=== PATIENT | female | born 1955 | race Caucasian/White ===

== ENCOUNTER 2016-10-10 01:06 | Emergency (ER) | payer BC ==
[~2016-10-10] VITALS: Ht 170.2 cm; Wt 100.7 kg
[~2016-10-10 01:06] MED LIST: ACET1TAB12 PO; ACYC800T PO; ASPI-131 PO; CA C1TAB81 PO; CINN500C14; FISH1CAP2 PO; GABA-338 PO; KETO10DR13 BOTH EYES; LORA10TA62 PO; MELO-273 PO; PANT40TA PO; VITA400T9 PO
--- OUTSIDE RECORDS SUMMARY | 2016-10-10 01:10 | XMS REPORT | Continuity of Care Document ---
Author Author [facility] Organization [facility] Address Unknown Phone Unavailable Allergies Medications Problems Procedures Results Encounters ACCT No. Visit Date/Time Discharge Status Pt. Type Provider Facility Loc./Unit Complaint [id number] 07/22/2013 18:05:00 07/22/2013 23 :59:59 CLS Outpatient [id number] 07/01/2013 13:10:00 07/01/2013 23 :59:59 CLS Outpatient
--- OUTSIDE RECORDS SUMMARY | 2016-10-10 01:11 | XMS REPORT | Referral Summary ---
Author Author [facility] Organization [facility] Address Unknown Phone Unavailable Care Team Providers Care Attendant [employer] Name Role Phone Fiordaliza Cinthya Primary Care Physician [phone] Encounter Date(s): 04/01/16 - 04/01/16 [facility] [address] [place], [place] [address] Discharge Diagnosis: Recurrent UTI Discharge Diagnosis: Urinary incontinence, mixed Discharge Disposition: 01-Home or Self Care Attending Physician: Nir Mae MD Admitting Physician: Nir Mae MD Vital Signs Most recent to 1 oldest [Reference Range]: Blood Pressure 124/72 mmHg [90-140/60-90 mmHg] (04/01/16 9:38 AM) Problem List Condition Effective Dates Status Health Status Informant Allergic rhinitis Active cause unspecified(Confirme d) Allergies(Confirmed) Resolved Arthralgia of the Active lower leg (finding)(Confirmed) Asthma(Confirmed) Resolved Benign neoplasm of Active skin (disorder)(Confirmed ) Other chronic Active sinusitis(Confirmed) Hyperkeratosis Active palmaris et plantaris(Confirmed) Dry eyes(Confirmed) Active Low sun exposure and Active no serious sunburns(Confirmed) GERD without Active esophagitis(Confirme d) Knee pain(Confirmed) Active Migraine Resolved headache(Confirmed) OA (osteoarthritis) Active of knee(Confirmed) AC SUPP OTITIS MEDIA Active W/O SPONTRUPT DRUM(Confirmed) Overweight(Confirmed Active ) Chronic Active insomnia(Confirmed) Retinal Active detachment(Confirmed ) Nevus(Confirmed) Active Urinary tract Active infection site not spec(Confirmed) Allergies, Adverse Reactions, Alerts Substance Reaction Severity Status amoxicillin rash Active cyclobenzaprine Active NSAIDs Active Peanuts Active penicillin unknown Active sulfamethoxazole unknown Active [place] Seeds Trouble breathing... Active traMADol right hand cramps Active Medications Advair Diskus 250 mcg-50 mcg inhalation powder 1 puffs, Inhalation, BID, # 3 Each, 1 Refill(s), Pharmacy: [facility] # [id number] Start Date: 10/10/15 Status: Ordered AZO Urinary Pain Relief mg, Oral, TIDPC, as needed for urinary discomfort, 0 Refill(s) Start Date: 04/02/15 Status: Ordered cinnamon 500 mg oral capsule See Instructions, 1 CAPS DAILY, 0 Refill(s) Start Date: 10/26/15 Status: Ordered ferrous sulfate 325 mg, Oral, Daily, 0 Refill(s) Start Date: 12/15/13 Status: Ordered Mobic 7.5 mg oral tablet 7.5 mg 1 tabs, Oral, BID, # 60 tabs, 0 Refill(s), Pharmacy: [facility] # [id number], 1 tabs Oral BID Start Date: 10/10/15 Status: Ordered omega-3 polyunsaturated fatty acids oral capsule 1 caps, Oral, Daily, 1000 MG, # 100 caps, 0 Refill(s) Start Date: 12/15/13 Status: Ordered oxybutynin 10 mg/24 hr oral tablet, extended release 10 mg 1 tabs, Oral, Daily, # 30 tabs, 3 Refill(s), Pharmacy: [facility] # [id number], 1 tabs Oral Daily,x30 days Start Date: 04/01/16 Stop Date: 07/30/16 Status: Ordered Protonix 40 mg oral delayed release tablet 40 mg 1 tabs, Oral, Daily, # 30 tabs, 5 Refill(s), Pharmacy: [facility] # [id number], 1 tabs Oral Daily Start Date: 10/26/15 Status: Ordered Ventolin HFA 90 mcg/inh inhalation aerosol 2 puffs, Inhalation, q4hr, as needed for wheezing, # 8 g, 0 Refill(s) Start Date: 12/15/13 Status: Ordered Vitamin D3 400 Intl_Units, Oral, Every other day, 0 Refill(s) Start Date: 12/15/13 Status: Ordered Results No data available for this section Immunizations Vaccine Date Refusal Reason tetanus/diphth/pertuss (Tdap) adult/adol 03/26/15 tetanus/diphth/pertuss (Tdap) adult/adol 08/27/11 influenza virus vaccine, inactivated 9/28/15 pneumococcal 23-polyvalent vaccine 07/07/14 pneumococcal 23-polyvalent vaccine 04/06/09 Procedures Procedure Date Related Diagnosis Body Site Cystourethroscopy (separate procedure).. 04/01/16 Nasal Septum Repair 05/30/08 Colonoscopy 01/29/07 Appendectomy 1992 Cholecystectomy 1992 section 1988 H/O tubal ligation 1988 Social History Social History Type Response Smoking Status Never smoker Assessment and Plan Extracted from: Title: Office Visit Note Author: Nir Mae MD Date: 04/01/16 Assessment/Plan 61 yo F with recurrent urinary tract infections and stress UI. 1.Recurrent UTI Advised patient to purchase D-mannose and cranberry pills OTC. Also suggested she start timed voiding every 4-6 hours to empty her bladder. 2.Urinary incontinence, mixed Will start oxybutynin once daily. Will also schedule patient for pelvic floor physical therapy. Timed voiding every 4-6 hours. Explained invasive interventions including botox, PTNS andinterstim if medical therapy fails for urge incontinence. Ordered: oxybutynin, 10 mg 1 tabs, Oral, Daily, # 30 tabs, 3 Refill(s), Pharmacy: [facility] #[id number], 1 tabs Oral Daily,x30 days RTC in6 months.
--- OUTSIDE RECORDS SUMMARY | 2016-10-10 01:11 | XMS REPORT | Referral Summary ---
Author Author [facility] Organization [facility] Address Unknown Phone Unavailable Care Team Providers Care First Responder Name Role Phone Cinthya Mancera Primary Care Physician [phone] Encounter VC Date(s): 04/23/16 - 04/23/16 [facility] [address] [place] [id number] Discharge Diagnosis: Acute URI Discharge Diagnosis: Acute panniculitis Discharge Disposition: 01-Home or Self Care Attending Physician: Stefan Mancera MD Admitting Physician: Stefan Mancera MD Vital Signs Most recent to 1 oldest [Reference Range]: Blood Pressure 120/80 mmHg [90-140/60-90 mmHg] (04/23/16 2:09 PM) Problem List Condition Effective Dates Status Health [...] Active penicillin unknown Active sulfamethoxazole unknown Active [place] Seeds Trouble breathing... Active traMADol right hand cramps Active Medications Advair Diskus 250 mcg-50 mcg inhalation powder 1 puffs, Inhalation, BID, # 3 Each, 1 Refill(s), Pharmacy: [facility] # [id number] Start Date: 10/10/15 Status: Ordered AZO Urinary [...] BID, # 60 tabs, 0 Refill(s), Pharmacy: [facility] # [id number], 1 tabs Oral BID Start Date: 10/10/15 Status: Ordered omega-3 polyunsaturated fatty acids oral capsule 1 caps, Oral, Daily, 1000 MG, # 100 caps, 0 Refill(s) Start Date: 12/15/13 Status: Ordered oxybutynin 10 mg/24 hr oral tablet, extended release 10 mg 1 tabs, Oral, Daily, # 30 tabs, 3 Refill(s), Pharmacy: [facility] # [id number], 1 tabs Oral Daily,x30 days Start Date: 04/01/16 Stop Date: 07/30/16 Status: Ordered predniSONE 20 mg oral tablet 20 mg 1 tabs, Oral, Daily, X 10 days, # 10 tabs, 0 Refill(s), Pharmacy: [facility] #[id number], 1 tabs Oral Daily,x10 days Start Date: 04/23/16 Stop Date: 05/03/16 Status: Ordered Protonix 40 mg oral delayed release tablet 40 mg 1 tabs, Oral, Daily, # 30 tabs, 5 Refill(s), Pharmacy: [facility] # [id number], 1 tabs Oral Daily Start Date: 10/26/15 [...] (Tdap) adult/adol 08/27/11 influenza virus vaccine, inactivated 03/26/15 pneumococcal 23-polyvalent vaccine 07/07/14 pneumococcal 23-polyvalent vaccine 04/06/09 Procedures Procedure Date Related Diagnosis Body Site Nasal Septum Repair 05/30/08 Colonoscopy 01/29/07 Appendectomy 1992 Cholecystectomy 1992 section 1988 H/O tubal ligation 1988 Social History Social History Type Response Smoking Status Never smoker Assessment and Plan Extracted from: Title: Ambulatory Patient Education Author: Stefan Mancera MD Date: Emergency Medicine Upper Respiratory Infection, Adult Most upper respiratory infections (URIs) are a viral infection of the air passages leading to the lungs. A URI affects the nose, throat, and upper air passages. The most common type of URI is nasopharyngitis and is typically referred to as "the common cold." URIs run their course and usually go away on their own. Most of the time, a URI does not require medical attention, but sometimes a bacterial infection in the upper airways can follow a viral infection. This is called a secondary infection. Sinus and middle ear infections are common types of secondary upper respiratory infections. Bacterial pneumonia can also complicate a URI. A URI can worsen asthma and chronic obstructive pulmonary disease (COPD). Sometimes, these complications can require emergency medical care and may be life threatening. CAUSES Almost all URIs are caused by viruses. A virus is a type of germ and can spread from one person to another. RISKS FACTORS You may be at risk for a URI if: You smoke. You have chronic heart or lung disease. You have a weakened defense (immune) system. You are very young or very old. You have nasal allergies or asthma. You work in crowded or poorly ventilated areas. You work in health care facilities or schools. SIGNS AND SYMPTOMS Symptoms typically develop 23 days after you come in contact with a cold virus. Most viral URIs last 710 days. However, viral URIs from the influenza virus (flu virus) can last 1418 days and are typically more severe. Symptoms may include: Runny or stuffy (congested) nose. Sneezing. Cough. Sore throat. Headache. Fatigue. Fever. Loss of appetite. Pain in your forehead, behind your eyes, and over your cheekbones (sinus pain). Muscle aches. DIAGNOSIS Your health care provider may diagnose a URI by: Physical exam. Tests to check that your symptoms are not due to another condition such as: Strep throat. Sinusitis. Pneumonia. Asthma. TREATMENT A URI goes away on its own with time. It cannot be cured with medicines, but medicines may be prescribed or recommended to relieve symptoms. Medicines may help: Reduce your fever. Reduce your cough. Relieve nasal congestion. HOME CARE INSTRUCTIONS Take medicines only as directed by your health care provider. Gargle warm saltwater or take cough drops to comfort your throat as directed by your health care provider. Use a warm mist humidifier or inhale steam from a shower to increase air moisture. This may make it easier to breathe. Drink enough fluid to keep your urine clear or pale yellow. Eat soups and other clear broths and maintain good nutrition. Rest as needed. Return to work when your temperature has returned to normal or as your health care provider advises. You may need to stay home longer to avoid infecting others. You can also use a face mask and careful hand washing to prevent spread of the virus. Increase the usage of your inhaler if you have asthma. Do not use any tobacco products, including cigarettes, chewing tobacco, or electronic cigarettes. If you need help quitting, ask your health care provider. PREVENTION The best way to protect yourself from getting a cold is to practice good hygiene. Avoid oral or hand contact with people with cold symptoms. Wash your hands often if contact occurs. There is no clear evidence that vitamin C, vitamin E, echinacea, or exercise reduces the chance of developing a cold. However, it is always recommended to get plenty of rest, exercise, and practice good nutrition. SEEK MEDICAL CARE IF: You are getting worse rather than better. Your symptoms are not controlled by medicine. You have chills. You have worsening shortness of breath. You have brown or red mucus. You have yellow or brown nasal discharge. You have pain in your face, especially when you bend forward. You have a fever. You have swollen neck glands. You have pain while swallowing. You have white areas in the back of your throat. SEEK IMMEDIATE MEDICAL CARE IF: You have severe or persistent: Headache. Ear pain. Sinus pain. Chest pain. You have chronic lung disease and any of the following: Wheezing. Prolonged cough. Coughing up blood. A change in your usual mucus. You have a stiff neck. You have changes in your: Vision. Hearing. Thinking. Mood. MAKE SURE YOU: Understand these instructions. Will watch your condition. Will get help right away if you are not doing well or get worse. This information is not intended to replace advice given to you by your health care provider. Make sure you discuss any questions you have with your health care provider. Document Released: 12/09/2001 Document Revised: 10/30/2015 Document Reviewed: [employer] Patient Education 2016 [employer] No follow up information was provided. Extracted from: Title: Office Visit Note Author: Stefan Mancera MD Date: 04/23/16 Assessment/Plan Acute panniculitis Prednisone 20mg po daily for ten days. Hand out given. Recheck if not resolving.Biopsy and/or consult ifrecurs. A work/ school note was offered and deferred by the patient. Acute URI The patient's issue is nearly or completely resolved. There is no further issues or testing desired by them at this time. May have caused the panniculitis.
--- OUTSIDE RECORDS SUMMARY | 2016-10-10 01:11 | XMS REPORT | Referral Summary ---
Author Author [facility] Organization [facility] Address Unknown Phone Unavailable Care Team Providers Care Insurance Legal Assistant Name Role Phone Lolyluz mariaCinthya arguello Primary Care Physician [phone] Encounter Date(s): 07/15/16 - 07/15/16 [facility] [address] [place] [address] [place] [id number]- Discharge Diagnosis: Visit for suture removal Discharge Disposition: 01-Home or Self Care Attending Physician: Yudelka Montalvo APRN Admitting Physician: Yudelka Montalvo APRN Vital Signs Most recent to 1 oldest [Reference Range]: Temperature Tympanic 36.3 degC [36.6-38.1 degC] *LOW* (07/15/16 9:55 AM) Problem List Condition Effective Dates Status [...] Active penicillin unknown Active sulfamethoxazole unknown Active [place] Seeds Trouble breathing... Active traMADol right hand cramps Active Medications Advair Diskus 250 mcg-50 mcg inhalation powder 1 puffs, Inhalation, BID, # 3 Each, 1 Refill(s), Pharmacy: [facility] # [id number] Start Date: 10/10/15 Status: Ordered AZO Urinary Pain Relief mg, Oral, TIDPC, as needed for urinary discomfort, 0 Refill(s) Start Date: 04/02/15 Status: Ordered cinnamon 500 mg oral capsule See Instructions, 1 CAPS DAILY, 0 Refill(s) Start Date: 10/26/15 Status: Ordered ferrous sulfate 325 mg, Oral, Daily, 0 Refill(s) Start Date: 12/15/13 Status: Ordered Misc Medication to help stop sugar cravings, 0 Refill(s) Start Date: 07/02/16 Status: Ordered Mobic 7.5 mg oral tablet 7.5 mg 1 tabs, Oral, BID, # 60 tabs, 0 Refill(s), Pharmacy: [facility] # [id number], 1 tabs Oral BID Start Date: 10/10/15 Status: Ordered omega-3 polyunsaturated fatty acids oral capsule 1 caps, Oral, Daily, 1000 MG, # 100 caps, 0 Refill(s) Start Date: 12/15/13 Status: Ordered oxybutynin 10 mg/24 hr oral tablet, extended release 10 mg 1 tabs, Oral, Daily, # 30 tabs, 3 Refill(s), Pharmacy: [facility] # [id number], 1 tabs Oral Daily,x30 days Start Date: 04/01/16 Stop Date: 07/30/16 Status: Ordered Protonix 40 mg oral delayed release tablet 40 mg 1 tabs, Oral, Daily, # 30 tabs, 5 Refill(s), Pharmacy: [facility] # [id number], 1 tabs Oral Daily Start Date: 10/26/15 Status: Ordered Ventolin HFA 90 mcg/inh inhalation aerosol 2 puffs, Inhalation, q4hr, as needed for wheezing, # 8 g, 0 Refill(s) Start Date: 12/15/13 Status: Ordered Vitamin D3 400 Intl_Units, Oral, Every other day, 0 Refill(s) Start Date: 12/15/13 Status: Ordered vitamin E 400 Intl_Units, Oral, Daily, 0 Refill(s) Start Date: 07/02/16 Status: Ordered Results No data available for this section Immunizations Given and Recorded Vaccine Date Status Refusal Reason tetanus/diphth/pertuss (Tdap) adult/adol 03/26/15 Recorded tetanus/diphth/pertuss (Tdap) adult/adol 08/27/11 Recorded influenza virus vaccine, inactivated1 03/19/16 Recorded influenza virus vaccine, inactivated 03/26/15 Recorded pneumococcal 23-polyvalent vaccine 07/07/14 Given pneumococcal 23-polyvalent vaccine 04/06/09 Recorded 1Location History: pt reports she had vaccine Procedures Procedure Date Related Diagnosis Body Site Epidermoid cyst of skin of neck1 07/02/16 Nasal Septum Repair 05/30/08 Colonoscopy 01/29/07 Appendectomy 1992 Cholecystectomy 1992 section 1988 H/O tubal ligation 1988 1Pathology indicates granulomatous dermatitis with microscopic description indicating differential diagnosis of ruptured dermal cyst/folliculitis versus a foreign body giant cell reaction. Social History Social History Type Response Smoking Status Never smoker Assessment and Plan Extracted from: Title: Office Visit Note Author: Yudelka Montalvo CHEMICAL MACHINE TENDER Date: 07/15/16 Assessment/Plan 1.Visit for suture removal Pathology indicates granulomatous dermatitis with microscopicdescription indicatingdifferential diagnosis including ruptureddermal cyst/ folliculitis versus foreign body giant cell reaction. Ordered: Postoperative Est [id number] Suggested she see her primary care physician regardingthis"whole-body feelslike the nerves are alive"sensation. I would not be the one to ordered gabapentin, that would be up to her primary care physician.
--- OUTSIDE RECORDS SUMMARY | 2016-10-10 01:11 | XMS REPORT | Referral Summary ---
Author Author [facility] Organization [facility] Address Unknown Phone Unavailable Care Team Providers Care Environmental Compliance Manager Name Role Phone Cinthya Mancera Primary Care Physician [phone] Encounter VC Date(s): 07/02/16 - 07/02/16 [facility] [address] [place] [address] [place] [id number] Discharge Diagnosis: Skin nodule Discharge Disposition: 01-Home or Self Care Attending Physician: Raudel Casey MD Admitting Physician: Raudel Casey MD Referring Physician: Stefan Mancera MD Vital Signs Most recent to 1 oldest [Reference Range]: Temperature Tympanic 36.1 degC [36.6-38.1 degC] *LOW* (07/02/16 9:10 AM) Peripheral Pulse 80 bpm Rate [60-100 bpm] (07/02/16 9:10 AM) Blood Pressure 120/80 mmHg [90-140/60-90 mmHg] (07/02/16 9:10 AM) Problem List Condition Effective Dates Status [...] Active penicillin unknown Active sulfamethoxazole unknown Active [place] [employer] Trouble breathing... Active traMADol right hand cramps Active Medications Advair Diskus 250 mcg-50 mcg inhalation powder 1 puffs, Inhalation, BID, # 3 Each, 1 Refill(s), Pharmacy: [facility] # [id number] Start Date: 10/10/15 Status: Ordered AZO Urinary [...] # 60 tabs, 0 Refill(s), Pharmacy: [facility] # [id number], 1 tabs Oral BID Start Date: 10/10/15 Status: Ordered omega-3 polyunsaturated fatty acids oral capsule 1 caps, Oral, Daily, 1000 MG, # 100 caps, 0 Refill(s) Start Date: 12/15/13 Status: Ordered oxybutynin 10 mg/24 hr oral tablet, extended release 10 mg 1 tabs, Oral, Daily, # 30 tabs, 3 Refill(s), Pharmacy: [facility] # [id number], 1 tabs Oral Daily,x30 days Start Date: 04/01/16 Stop Date: 07/30/16 Status: Ordered Protonix 40 mg oral delayed release tablet 40 mg 1 tabs, Oral, Daily, # 30 tabs, 5 Refill(s), Pharmacy: [facility] # [id number], 1 tabs Oral Daily Start Date: 10/26/15 [...] Extracted from: Title: Ambulatory Patient Education Author: Raudel Casey MD Date: 07/02 Procedures Excision of Skin Lesions Excision of a skin lesion refers to the removal of a section of skin by making small cuts (incisions) in the skin. This is typically done to remove a cancerous growth (basal cell carcinoma, squamous cell carcinoma, or melanoma) or a noncancerous growth (cyst). It may be done to treat or prevent cancer or infection. It may also be done to improve cosmetic appearance (removal of mole, skin tag). LET YOUR CAREGIVER KNOW ABOUT: Allergies to food or medicine. Medicines taken, including vitamins, herbs, eyedrops, siod-iyb-hvcqtjy medicines, and creams. Use of steroids (by mouth or creams). Previous problems with anesthetics or numbing medicines. History of bleeding problems or blood clots. History of any prostheses. Previous surgery. Other health problems, including diabetes and kidney problems. Possibility of , if this applies. RISKS AND COMPLICATIONS Many complications can be managed. With appropriate treatment and rehabilitation , the following complications are very uncommon: Bleeding. Infection. Scarring. Recurrence of cyst or cancer. Changes in skin sensation or appearance (discoloration, swelling). Reaction to anesthesia. Allergic reaction to surgical materials or ointments. Damage to nerves, blood vessels, muscles, or other structures. Continued pain. BEFORE THE PROCEDURE It is important to follow your caregiver's instructions prior to your procedure to avoid complications. Steps before your procedure may include: Physical exam, blood tests, other procedures, such as removing a small sample for examination under a microscope (biopsy). Your caregiver may review the procedure, the anesthesia being used, and what to expect after the procedure with you. You may be asked to: Stop taking certain medicines, such as blood thinners (including aspirin , clopidogrel, ibuprofen), for several days prior to your procedure. Take certain medicines. Stop smoking. It is a good idea to arrange for a ride home after surgery and to have someone to help you with activities during recovery. PROCEDURE There are several excision techniques. The type of excision or surgical technique used will depend on your condition, the location of the lesion, and your overall health. After the lesion is sterilized and a local anesthetic is applied, the following may be performed: Complete surgical excision The area to be removed is marked with a pen. Using a small scalpel and scissors , the surgeon gently cuts around and under the lesion until it is completely removed. The lesion is placed in a special fluid and sent to the lab for examination. If necessary, bleeding will be controlled with a device that delivers heat. The edges of the wound are stitched together and a dressing is applied. This procedure may be performed to treat a cancerous growth or noncancerous cyst or lesion. Surgeons commonly perform an elliptical excision, to minimize scarring. Excision of a cyst The surgeon makes an incision on the cyst. The entire cyst is removed through the incision. The wound may be closed with a suture (stitch). Shave excision During shave excision, the surgeon uses a small blade or loop instrument to shave off the lesion. This may be done to remove a mole or skin tag. The wound is usually left to heal on its own without stitches. Punch excision During punch excision, the surgeon uses a small, round tool (like a cookie cutter) to cut a [place] shape out of the skin. The outer edges of the skin are stitched together. This may be done to remove a mole or scar or to perform a biopsy of the lesion. Mohs micrographic surgery During Mohs micrographic surgery, layers of the lesion are removed with a scalpel or loop instrument and immediately examined under a microscope until all of the abnormal or cancerous tissue is removed. This procedure is minimally invasive and ensures the best cosmetic outcome, with removal of as little normal tissue as possible. Mohs is usually done to treat skin cancer, such as basal cell carcinoma or squamous cell carcinoma, particularly on the face and ears. Antibiotic ointment is applied to the surgical area after each of the procedures listed above, as necessary. AFTER THE PROCEDURE How well you heal depends on many factors. Most patients heal quite well with proper techniques and self-care. Scarring will lessen over time. HOME CARE INSTRUCTIONS Take medicines for pain as directed. Keep the incision area clean, dry, and protected for at least 48 hours. Change dressings as directed. For bleeding, apply gentle but firm pressure to the wound using a folded towel for 20 minutes. Call your caregiver if bleeding does not stop. Avoid high-impact exercise and activities until the stitches are removed or the area heals. Follow your caregiver's instructions to minimize scarring. Avoid sun exposure until the area has healed. Scarring should lessen over time. Follow up with your caregiver as directed. Removal of stitches within 4 to 14 days may be necessary. Finding out the results of your test Not all test results are available during your visit. If your test results are not back during the visit, make an appointment with your caregiver to find out the results. Do not assume everything is normal if you have not heard from your caregiver or the medical facility. It is important for you to follow up on all of your test results. SEEK MEDICAL CARE IF: You or your child has an oral temperature above 102 F (38.9 C). You develop signs of infection (chills, feeling unwell). You notice bleeding, pain, discharge, redness, or swelling at the incision site. You notice skin irregularities or changes in sensation. MAKE SURE YOU: Understand these instructions. Will watch your condition. Will get help right away if you are not doing well or get worse. FOR MORE INFORMATION [place] [employer]: www.aafp.org [place] [employer]: www.aad.org This information is not intended to replace advice given to you by your health care provider. Make sure you discuss any questions you have with your health care provider. Document Released: 09/09/2010 Document Revised: 09/06/2012 Document Reviewed: [employer] Interactive Patient Education 2016 [employer] No follow up information was provided. Extracted from: Title: Office Visit Note Author: Raudel Casey MD Date: 07/02/16 Assessment/Plan 1.Skin nodule Ordered: Office Visit Level 2 New [address] Plan: Excisional biopsyof 2 cm subcutaneous mass. I informed the patient that as my clinical intuition that this subcutaneous mass involving her left lateral neck that was causing her a prior element of discomfort was that of ainclusion cyst/sebaceous cyst.I recommendedunless that we proceed with an excisional biopsyboth a diagnostic and therapeutic standpoint.Patient understood and wished to proceed.The area of concern was prepped and draped in sterile fashion. One percent lidocaine with epinephrine was injected circumferentially around the nodule. Thenodule /subcutaneous masswas excisedin its entirety in a standard elliptical fashion. The elliptical incision was2 cm in width and 3.5cm in length.The subcutaneous mass itself was 2 cm in diameter. Hemostasis obtained with electrocautery. The incision was closed in layers with 4-0 Vicryl subcuticular stitches and 4-0 Prolene for skin edges. The patient was given post excision instruction and told to return to the clinic in 10-14 days, or sooner if any concerns arise.
--- OUTSIDE RECORDS SUMMARY | 2016-10-10 01:12 | XMS REPORT | Referral Summary ---
Author Author [facility] Organization [facility] Address Unknown Phone Unavailable Care Team Providers Care Stone Dresser Name Role Phone Cinthya Mancera Primary Care Physician [phone] Encounter Date(s): 07/02/16 - 07/02/16 [facility] [address] [place] [id number]- Discharge Diagnosis: Sebaceous cyst Discharge Diagnosis: Acute headache Discharge Diagnosis: Allergic rhinitis cause unspecified Discharge Diagnosis: Cellulitis Discharge Diagnosis: Chronic insomnia Discharge Diagnosis: GERD without esophagitis Discharge Diagnosis: Asthma Discharge Diagnosis: Acute right otitis media Discharge Disposition: 01-Home or Self Care Attending Physician: Stefan Mancera MD Admitting Physician: Stefan Mancera MD Vital Signs Most recent to 1 oldest [Reference Range]: Blood Pressure 120/80 mmHg [90-140/60-90 mmHg] (07/02/16 8:39 AM) Problem List Condition Effective Dates Status [...] Active penicillin unknown Active sulfamethoxazole unknown Active [place] [employer] Trouble breathing... Active traMADol right hand cramps Active Medications Advair Diskus 250 mcg-50 mcg inhalation powder 1 puffs, Inhalation, BID, # 3 Each, 1 Refill(s), Pharmacy: [facility] # [id number] Start Date: 10/10/15 Status: Ordered AZO Urinary [...] BID, # 60 tabs, 0 Refill(s), Pharmacy: [facility] # [id number], 1 tabs Oral BID Start Date: 10/10/15 Status: Ordered omega-3 polyunsaturated fatty acids oral capsule 1 caps, Oral, Daily, 1000 MG, # 100 caps, 0 Refill(s) Start Date: 12/15/13 Status: Ordered oxybutynin 10 mg/24 hr oral tablet, extended release 10 mg 1 tabs, Oral, Daily, # 30 tabs, 3 Refill(s), Pharmacy: [facility] # [id number], 1 tabs Oral Daily,x30 days Start Date: 04/01/16 Stop Date: 07/30/16 Status: Ordered Protonix 40 mg oral delayed release tablet 40 mg 1 tabs, Oral, Daily, # 30 tabs, 5 Refill(s), Pharmacy: [facility] # [id number], 1 tabs Oral Daily Start Date: 10/26/15 [...] Patient Education Author: Stefan Mancera MD Date: 07/02/16 Allergy Allergies An allergy is an abnormal reaction to a substance by the body's defense system ( immune system). Allergies can develop at any age. WHAT CAUSES ALLERGIES? An allergic reaction happens when the immune system mistakenly reacts to a normally harmless substance, called an allergen, as if it were harmful. The immune system releases antibodies to fight the substance. Antibodies eventually release a chemical called histamine into the bloodstream. The release of histamine is meant to protect the body from infection, but it also causes discomfort. An allergic reaction can be triggered by: Eating an allergen. Inhaling an allergen. Touching an allergen. WHAT TYPES OF ALLERGIES ARE THERE? There are many types of allergies. Common types include: Seasonal allergies. People with this type of allergy are usually allergic to substances that are only present during certain seasons, such as molds and pollens. Food allergies. Drug allergies. Insect allergies. Animal dander allergies. WHAT ARE SYMPTOMS OF ALLERGIES? Possible allergy symptoms include: Swelling of the lips, face, tongue, mouth, or throat. Sneezing, coughing, or wheezing. Nasal congestion. Tingling in the mouth. Rash. Itching. Itchy, red, swollen areas of skin (hives). Watery eyes. Vomiting. Diarrhea. Dizziness. Lightheadedness. Fainting. Trouble breathing or swallowing. Chest tightness. Rapid heartbeat. HOW ARE ALLERGIES DIAGNOSED? Allergies are diagnosed with a medical and family history and one or more of the following: Skin tests. Blood tests. A food diary. A food diary is a record of all the foods and drinks you have in a day and of all the symptoms you experience. The results of an elimination diet. An elimination diet involves eliminating foods from your diet and then adding them back in one by one to find out if a certain food causes an allergic reaction. HOW ARE ALLERGIES TREATED? There is no cure for allergies, but allergic reactions can be treated with medicine. Severe reactions usually need to be treated at a hospital. HOW CAN REACTIONS BE PREVENTED? The best way to prevent an allergic reaction is by avoiding the substance you are allergic to. Allergy shots and medicines can also help prevent reactions in some cases. People with severe allergic reactions may be able to prevent a life- threatening reaction called anaphylaxis with a medicine given right after exposure to the allergen. This information is not intended to replace advice given to you by your health care provider. Make sure you discuss any questions you have with your health care provider. Document Released: 09/08/2003 Document Revised: 07/06/2015 Document Reviewed: [employer] Interactive Patient Education 2016 [employer]. No follow up information was provided. Extracted from: Title: Office Visit Note Author: Stefan Mancera MD Date: 07/02/16 Assessment/Plan Acute headache Toradol 60mg IM w/phen 50mg IM at her request. She lives very close and agrees to go right home. RTW note given. RTC if not improving or to [facility] ER. Acute right otitis media Zpack. Allergic rhinitis cause unspecified This issue was reviewed, appears stable, and current therapy continued except as mentioned. Appropriate lab was reviewed from the most recent appropriate entry and lab was ordered if needed in the cpoe/nursing orders, and follow up recommended generally in 90 days and no later then six months. Asthma This issue was reviewed, appears stable, and current therapy continued except as mentioned. Appropriate lab was reviewed from the most recent appropriate entry and lab was ordered if needed in the cpoe/nursing orders, and follow up recommended generally in 90 days and no later then six months. Impression: No acute abnormality. There has been no significant change since the previous study. [1] Cellulitis Zpack at her request due to expense and past success. To Dr. MCPHERSON for evaluation. Chronic insomnia This issue was reviewed, appears stable, and current therapy continued except as mentioned. Appropriate lab was reviewed from the most recent appropriate entry and lab was ordered if needed in the cpoe/nursing orders, and follow up recommended generally in 90 days and no later then six months. GERD without esophagitis This issue was reviewed, appears stable, and current therapy continued except as mentioned. Appropriate lab was reviewed from the most recent appropriate entry and lab was ordered if needed in the cpoe/nursing orders, and follow up recommended generally in 90 days and no later then six months. Stable on current meds. Sebaceous cyst To Dr. MCPHERSON for evaluation and removal. IMPRESSION: Essentially unremarkable noncontrast CT of the abdomen and pelvis. No urinary tract calculi or obstruction is detected. [2]
[2016-10-10 01:16] VITALS: Ht 170.2 cm; Wt 100.7 kg
[2016-10-10] MEDS ORDERED: NORMAL SALINE 1,000 ML IV ONE (01:27)
--- NOTE | 2016-10-10 01:27 | NUR ---
PROVIDER DR RHOADES IN ROOM W/ PT.
[2016-10-10] MEDS ORDERED: DiphenhydrAMINE 50 MG/ML INJECTION IV ONE (01:30)
[2016-10-10] MEDS ORDERED: FAMOTIDINE 20mg IVPB 50 ML IV ONE (01:30)
--- OUTSIDE RECORDS SUMMARY | 2016-10-10 01:41 | XMS REPORT | Continuity of Care Document ---
Author Author [facility] Organization [facility] Address Unknown Phone Unavailable Allergies Medications Problems Procedures Results Encounters ACCT No. Visit Date/Time Discharge Status Pt. Type Provider Facility Loc./Unit Complaint [id number] 07/22/2013 18:05:00 07/22/2013 23 :59:59 C[facility] Outpatient [id number] 07/01/2013 13:10:00 07/01/2013 23 :59:59 CLS Outpatient
--- NOTE | 2016-10-10 01:50 | ERPDOC ---
Departure Disposition Decision Date: Oct 10, 2016 Disposition Decision Time: 03:26 Disposition: 01 DISCHARGED HOME, SELF-CARE Impression Impression Impression: Primary Impression: Allergic reaction to food Encounter type: initial encounter Qualified Codes: T78.1XXA - Other adverse food reactions, not elsewhere classified, initial encounter Additional Impression: Food allergy, peanut Severity: Moderate Condition: Improved Seen By: Physician only Referrals: ISHAAN CADENA MD (PCP/Family) 1 Week Patient Instructions: Peanut Allergy (ED) Problems/Meds/Labs Reviewed?: Yes Medications reviewed and manag: Yes Additional Instructions: We have treated you for an allergic reaction to peanuts. Avoid peanuts in the future. Follow up with your doctor in the next week. Follow up care ordered?: Yes Mental Status: Alert HPI - General Medical General Chief Complaint: Allergic Reaction Stated Complaint: TONGUE SWOLLEN Time Seen by Provider: : Source: patient Exam Limitations: no limitations HPI - General Medical Initial Comments 61yo woman presents to the ER tonight with tongue swelling. Pt is allergic to peanuts; has had angioedema and respiratory compromise previously. Stuck a [employer] peanut/chocolate candy in her mouth, but spit it out when her mouth began to feel funny. Noticed that she felt like her tongue was swelling and she could no longer see the back of her throat (which she is normally able to do), so she took 50mg of Benadryl and came to the ER. Occurred At: home Onset: Rapid Duration: 1 hr Severity: moderate Modifying Factors: WORSE WITH: eating Associated Symptoms: DENIES: shortness of breath Hx of Similar Symptoms: Yes Allergies: Coded Allergies: Penicillins (Verified Allergy, Severe, STOPS BREATHING, 11/04/15) peanut (Verified Allergy, Severe, STOPS BREATHING, 11/04/15) tramadol (Verified Allergy, Severe, STOPS BREATHING, 11/04/15) hydrocodone (Verified Adverse Reaction, Unknown, CONFUSION, 11/04/15) Past History Past Medical History ENMT: allergies, sinusitis Respiratory: asthma Female: UTI Neurological: migraines Musculoskeletal: osteoarthritis Surgical History General: appendix, gallbladder Reproductive/: Joint: knee Family History Family PMH: FOUND: hypercholesterolemia, hypertension Vaccines Hx Tetanus, Diptheria, Pertuss: Yes Social History Second Hand Exposure: Yes Substance Use Type: does not use Alcohol Intake: none Review of Systems ENMT Comments Throat swelling sensation. All other Systems All Other Systems: Reviewed and Negative Physical Exam General General Nourishment: well nourished, well developed, appears stated age, no acute distress, adult, obese General Body Habitus: well groomed Vitals and Pain First Documented Vital Signs Date Time Temp Pulse Resp B/P Pulse Ox O2 Delivery O2 Flow Rate FiO2 10/10/16 01:16 98.0 84 20 124/72 96 Room Air Weight: Kilograms: Height (feet): 5 Height (inches): 65.40 Triage Pain Scale: RN VS reviewed by Provider: Yes Eyes (brief) Eyes Brief: found: EOMI, PERRL, not found: scleral icterus ENMT (brief) ENMT Brief: FOUND: TM clear, TM good light reflex, ear canals clear, mucosa moist, normal tonsils, other (Tongue mildly swollen; unable to see to the back of the oropharynx (Mallampati class 4)) Neck (brief) Neck: FOUND: trachea midline, NOT FOUND: JVD, adenopathy, thyromegaly Respiratory (brief) Respiratory: FOUND: clear all tran, equal bilaterally, symmetrical, NOT FOUND : rales, wheezes Cardiovascular (brief) Cardiac: FOUND: regular rate, regular rhythm, NOT FOUND: click, gallop, murmur , pedal edema, peripheral edema, rub Capillary Refill: <2 sec Pulses: all distal extremities, equal, strong Psychiatric (brief) Psychiatric Brief: FOUND: alert, oriented, NOT FOUND: normal affect (Anxious) Supervisory Exam Neck: trachea midline Chest: symmetric Abdomen: non-distended Musculoskeletal: no deformity or atrophy Neurological: no abnormal movements Skin: pink, dry Differential Diagnoses Considering: Other (Angioedema; anaphylaxis; panick attack; globus) Progress Results/Orders Orders Procedure Category Date Status Time Iv Lock (Ed Only) EDM 10/10/16 Transmitted 01:27 Oxygen Administration EDM 10/10/16 Transmitted 01:27 Nothing By Mouth (Ed EDM 10/10/16 Transmitted Only) 01:27 Diphenhydramine PHA 10/10/16 Complete (Benadryl) 01:30 Normal Saline (Normal PHA 10/10/16 Complete Saline Iv) 01:27 Famotidine 20mg Ivpb PHA 10/10/16 Complete (Pepcid 20mg In Ns 01:30 Methylprednisolone PHA 10/10/16 Complete Sod Succ (Solu-Medrol 01:30 Medications Current ED Medications Diphenhydramine HCl 50 mg 50 mg O ONCE IV Last administered on 10/10/16 02:13 ; Start 10/10/16 at 01:30; Stop 10/10/16 at 01:31; Status DC Sodium Chloride 1,000 ml @ 0 mls/hr Q0M ONCE IV Last administered on 01:27; Start 10/10/16 at 01:27; Stop 10/10/16 at 01:29; Status DC Famotidine (PEPCID 20mg in NS 50ml) 50 ml @ 100 mls/hr O ONCE IV Last administered on 10/10/16 02:18; Start 10/10/16 at 01:30; Stop 10/10/16 at 01:59 ; Status DC Methylprednisolone Sodium Succinate (Solu-Medrol) 125 mg O ONCE IV Last administered on 10/10/16 02:16; Start 10/10/16 at 01:30; Stop 10/10/16 at 01:31 ; Status DC Progress Progress Pts sx markedly improved following medications. More of pts oropharynx is now visible (Mallampati 3). Will d/c pt to home. Discussed dx, prognosis, and tx with pt who voiced understanding. F/u with PCM. DELROY RHOADES DO Oct 10, 2016 01:50
[2016-10-10 03:41] VITALS: BP 124/72; PULSE 72; RESP 18; TEMP 98; O2SAT 96
--- NOTE | 2016-10-10 03:41 | NUR ---
DISCHARGE PT GIVEN INSTRUCTIONS FOR CONT CARE PEANUT ALLERGY. PT VERBALIZED UNDERSTANDING AND SIGNED FORM. PT LEFT ER ALERT VS CHARTED W/ NO APPEARANCE OF ALLERGIC REACTION AND NO ACUTE DISTRESS.
== END 2016-10-10 03:41 | disposition home or self-care (01) ==
LOC: ED 01:06
DX: T78.1XXA Other adverse food reactions, not elsewhere classified, initial encounter (principal); R22.0 Localized swelling, mass and lump, head; X58.XXXA Exposure to other specified factors, initial encounter
CPT/HCPCS: 96361; 96365; 96375; 99284; J1200; J2930; J7030